=== PATIENT | female | born 1960 | race Caucasian/White ===

== ENCOUNTER 2020-10-23 12:37 | Emergency (ER) | payer OTHER ==
[~2020-10-23] VITALS: Ht 165.1 cm; Wt 68.0 kg
[~2020-10-23 12:37] MED LIST: AUGMENTIN 875875 MG PO; CIPROFLOXACIN500 M1 PO; FUROSEMIDE PO; NORCO 5-325 TA1 EACH PO; [UNRECOGNIZED DRUG - REMARK]
[2020-10-23 13:33] VITALS: BP 160/60
== END 2020-10-23 13:34 | disposition home or self-care (01) ==
LOC: M.ERS 12:37
DX: S01.401A Unspecified open wound of right cheek and temporomandibular area, initial encounter (principal); Z20.822 Contact with and (suspected) exposure to COVID-19; J06.9 Acute upper respiratory infection, unspecified; G43.909 Migraine, unspecified, not intractable, without status migrainosus; F17.210 Nicotine dependence, cigarettes, uncomplicated; Z98.890 Other specified postprocedural states; Z90.710 Acquired absence of both cervix and uterus; X58.XXXA Exposure to other specified factors, initial encounter; Y93.89 Activity, other specified; Y92.89 Other specified places as the place of occurrence of the external cause; Y99.8 Other external cause status